=== PATIENT | female | born 1930 | race Caucasian/White ===

== ENCOUNTER 2017-03-21 22:18 | Inpatient (IN) | payer MEDICARE, OTHER ==
[~2017-03-21] VITALS: Ht 160 cm; Wt 48.2 kg
[~2017-03-21 22:18] MED LIST: ALBU18HF INH; DILT120C2 PO; DILT60TA30 PO; FURO-93 PO; HYDR-3240 PO; HYDR-3245 PO; LOSA25TA5 PO; NAPR500T3 PO; PANT40TA3 PO; POLY17PO5 PO; POT25TAB PO
[2017-03-21 22:52] LABS: HEMATOCRIT 36.3 % (34.6-47.8); HEMOGLOBIN 11.6 g/dL (11.7-16.4); WHITE BLOOD COUNT 15.5 x10^3/uL (3.4-10)
[2017-03-21 23:18] LABS: BLOOD UREA NITROGEN 27 mg/dL (7-18)
[2017-03-21 23:19] LABS: IS PT STATUS REG ER OR PRE ER? YES
[2017-03-21 23:25] LABS: ASPARTATE AMINO TRANSFERASE 11 U/L (15-37)
[2017-03-21] MEDS ORDERED: OMNIPAQUE 350 MG/ML, 100ML BOTTLE ONE (23:35)
[2017-03-22 00:01] LABS: ABG COLLECTION SITE RIGHT RADIAL; COLLATERAL CIRCULATION TESTING NORMAL
[2017-03-22] MEDS ORDERED: MIDAZOLAM HCL 25 MG in SODIUM CHLORIDE 0.9% 245 ML IV PRN ×4 (01:00→06:17)
[2017-03-22] MEDS ORDERED: LIDOCAINE 1%, 20ML ONE ×2 (01:14→03:14)
[2017-03-22] MEDS ORDERED: FENTANYL PF 100 MCG/2ML ONE (01:18)
[2017-03-22] MEDS ORDERED: FENTANYL PF 250 MCG/5ML IVPush ONE (05:30)
[2017-03-22] MEDS ORDERED: ENOXAPARIN 40 MG/0.4 ML SQ SCH (06:30)
[2017-03-22] MEDS ORDERED: PHARMACY MAY ADJ FOR RENAL FX MC SCH (06:30)
[2017-03-22] MEDS ORDERED: FENTANYL PF 100 MCG/2ML IVPush PRN (06:30)
[2017-03-22] MEDS ORDERED: SENNA/DOCUSATE TABLET NG PRN (06:30)
[2017-03-22] MEDS ORDERED: LIDOCAINE-MPF 1%, 2ML ENDO PRN (06:30)
[2017-03-22] MEDS ORDERED: BISACODYL 10 MG SUPP PR PRN (06:30)
[2017-03-22] MEDS ORDERED: SENNOSIDES 8.8 MG/5 ML ORAL SOL NG PRN (06:30)
[2017-03-22] MEDS ORDERED: LACTULOSE 20 GM/30 ML UDC NG PRN (06:30)
[2017-03-22] MEDS ORDERED: SODIUM CHLORIDE 0.9%, 500ML IVBOLUS ONE ×2 (06:30→11:30)
[2017-03-22 06:32] LABS: ABG COLLECTION SITE RIGHT RADIAL; COLLATERAL CIRCULATION TESTING NORMAL
[2017-03-22] MEDS ORDERED: SODIUM CHLORIDE 0.9% 1,000 ML IV ONE (06:42)
[2017-03-22] MEDS ORDERED: ONDANSETRON 2MG/ML, 2ML IVPush PRN ×2 (07:00→08:00)
[2017-03-22] MEDS ORDERED: POLYETHYLENE GLYCOL 17 GM PACKET PO PRN (08:00)
[2017-03-22] MEDS ORDERED: LORazepam 2 MG/ML, 1ML IVPush PRN (08:00)
[2017-03-22] MEDS ORDERED: morphine SULFATE 10 MG/ML, 1ML IVPush PRN (08:00)
[2017-03-22] MEDS ORDERED: ACETAMINOPHEN 325 MG TABLET PO PRN (08:00)
[2017-03-22] MEDS: SODIUM CHLORIDE 0.9% 1,000 ML IV SCH ×2 (08:00→17:39)
[2017-03-22] MEDS ORDERED: ENALAPRILAT 1.25 MG/ML, 2ML IVPush PRN (08:00)
[2017-03-22] MEDS ORDERED: ENOXAPARIN 40 MG/0.4 ML ONE (08:50)
[2017-03-22] MEDS ORDERED: methylPREDNISolone SOD SUCC 125 MG/2 ML ONE (08:50)
[2017-03-22] MEDS ORDERED: FAMOTIDINE 20 MG/2 ML ONE (08:50)
[2017-03-22] MEDS: methylPREDNISolone SOD SUCC 125 MG/2 ML IVPush SCH ×4 (08:52→23:39)
[2017-03-22] MEDS: FAMOTIDINE 20 MG/2 ML IV SCH ×2 (08:52→20:21)
[2017-03-22] MEDS: SENNA/DOCUSATE TABLET PO SCH (09:00)
[2017-03-22 09:17] LABS: IS PT STATUS REG ER OR PRE ER? NO
[2017-03-22 09:50] VITALS: BP 129/65
[2017-03-22] MEDS: ALBUTEROL/IPRATROPIUM 2.5MG/0.5MG, 3 ML INLINE SCH ×4 (10:00→21:22)
[2017-03-22] MEDS: MIDAZOLAM HCL 50 MG in SODIUM CHLORIDE 0.9% 240 ML IV PRN ×2 (11:19→20:19)
[2017-03-22] MEDS: PIPERACILLIN/TAZO/PMX 3.375GM 50 ML IV SCH ×3 (11:20→23:05)
[2017-03-22 15:00] LABS: IS PT STATUS REG ER OR PRE ER? YES
[2017-03-22] MEDS ORDERED: ROCURONIUM 10MG/ML,5ML ONE (23:00)
[2017-03-22] MEDS ORDERED: ETOMIDATE 20 MG/10 ML ONE (23:00)
[2017-03-22] MEDS ORDERED: MIDAZOLAM 1 MG/ML, 5ML ONE (23:00)
[2017-03-23] MEDS: ALBUTEROL/IPRATROPIUM 2.5MG/0.5MG, 3 ML INLINE SCH ×6 (02:30→22:46)
[2017-03-23 04:00] VITALS: BP 132/65
[2017-03-23] MEDS: SODIUM CHLORIDE 0.9% 1,000 ML IV SCH ×3 (04:06→14:48)
[2017-03-23 04:35] LABS: ABG COLLECTION SITE RIGHT RADIAL; COLLATERAL CIRCULATION TESTING NORMAL
[2017-03-23 04:35] LABS: HEMATOCRIT 28.8 % (34.6-47.8); HEMOGLOBIN 9.4 g/dL (11.7-16.4); WHITE BLOOD COUNT 5.8 x10^3/uL (3.4-10)
[2017-03-23 04:42] LABS: BLOOD UREA NITROGEN 25 mg/dL (7-18)
[2017-03-23 04:45] LABS: ASPARTATE AMINO TRANSFERASE 10 U/L (15-37)
[2017-03-23] MEDS: PIPERACILLIN/TAZO/PMX 3.375GM 50 ML IV SCH ×4 (05:34→23:06)
[2017-03-23] MEDS: methylPREDNISolone SOD SUCC 125 MG/2 ML IVPush SCH ×3 (06:06→18:12)
[2017-03-23] MEDS: MIDAZOLAM HCL 50 MG in SODIUM CHLORIDE 0.9% 240 ML IV PRN (07:34)
[2017-03-23] MEDS: SENNA/DOCUSATE TABLET PO SCH (09:00)
[2017-03-23] MEDS: FAMOTIDINE 20 MG/2 ML IV SCH ×2 (09:25→20:31)
[2017-03-23] MEDS: ENOXAPARIN 30 MG/0.3 ML SQ SCH (09:26)
[2017-03-23] MEDS: PROPOFOL 100 ML IV PRN ×2 (09:34→19:41)
[2017-03-23] MEDS ORDERED: AMIODARONE 900 MG in DEXTROSE 5% 482 ML IV PRN (14:34)
[2017-03-23] MEDS ORDERED: AMIODARONE 150 MG in DEXTROSE 5% 100 ML IVPB ONE (14:34)
[2017-03-23] MEDS ORDERED: FILTER 0.22 MICRON IV PRN (15:00)
[2017-03-23] MEDS ORDERED: BISACODYL 10 MG SUPP PR PRN (21:00)
[2017-03-23] MEDS ORDERED: POLYETHYLENE GLYCOL 17 GM PACKET PO PRN (21:00)
[2017-03-23] MEDS ORDERED: ENALAPRILAT 1.25 MG/ML, 2ML IVPush PRN (21:00)
[2017-03-23] MEDS ORDERED: FENTANYL PF 100 MCG/2ML IVPush PRN (21:00)
[2017-03-23] MEDS ORDERED: LIDOCAINE-MPF 1%, 2ML ENDO PRN (21:00)
[2017-03-23] MEDS ORDERED: SENNOSIDES 8.8 MG/5 ML ORAL SOL NG PRN (21:00)
[2017-03-23] MEDS ORDERED: SENNA/DOCUSATE TABLET NG PRN (21:00)
[2017-03-23] MEDS ORDERED: ONDANSETRON 2MG/ML, 2ML IVPush PRN (21:00)
[2017-03-23] MEDS ORDERED: LORazepam 2 MG/ML, 1ML IVPush PRN (21:00)
[2017-03-23] MEDS ORDERED: ACETAMINOPHEN 325 MG TABLET PO PRN (21:00)
[2017-03-23] MEDS ORDERED: PHARMACY MAY ADJ FOR RENAL FX MC SCH (21:00)
[2017-03-24] MEDS ORDERED: SODIUM CHLORIDE 0.9%, 500ML IVBOLUS ONE
[2017-03-24] MEDS: methylPREDNISolone SOD SUCC 125 MG/2 ML IVPush SCH ×4 (00:08→17:31)
[2017-03-24] MEDS: ALBUTEROL/IPRATROPIUM 2.5MG/0.5MG, 3 ML INLINE SCH ×6 (02:40→22:10)
[2017-03-24 03:34] LABS: ABG COLLECTION SITE LEFT BRACHIAL
[2017-03-24 03:41] LABS: HEMATOCRIT 27.1 % (34.6-47.8); WHITE BLOOD COUNT 10.5 x10^3/uL (3.4-10)
[2017-03-24 03:46] LABS: BLOOD UREA NITROGEN 27 mg/dL (7-18)
[2017-03-24 04:00] VITALS: BP 133/68
[2017-03-24] MEDS: PIPERACILLIN/TAZO/PMX 3.375GM 50 ML IV SCH ×4 (05:54→22:34)
[2017-03-24] MEDS: PROPOFOL 100 ML IV PRN ×2 (06:05→15:23)
[2017-03-24] MEDS ORDERED: POTASSIUM CHLORIDE 10% 40 MEQ/30 ML UDC PO ONE (08:00)
[2017-03-24] MEDS ORDERED: FENTANYL PF 2,500 MCG in SODIUM CHLORIDE 0.9% 200 ML IV PRN (08:30)
[2017-03-24] MEDS: FAMOTIDINE 20 MG/2 ML IV SCH ×2 (09:01→20:01)
[2017-03-24] MEDS: SENNA/DOCUSATE TABLET PO SCH (09:01)
[2017-03-24] MEDS: LACTULOSE 20 GM/30 ML UDC NG PRN (09:01)
[2017-03-24] MEDS: ENOXAPARIN 30 MG/0.3 ML SQ SCH (09:01)
[2017-03-24] MEDS: SODIUM CHLORIDE 0.9% 1,000 ML IV SCH ×2 (09:01→17:32)
[2017-03-24] MEDS: AMIODARONE 200 MG TABLET PO SCH ×2 (12:25→20:01)
[2017-03-25] MEDS: methylPREDNISolone SOD SUCC 125 MG/2 ML IVPush SCH ×2 (00:20→05:31)
[2017-03-25] MEDS: ALBUTEROL/IPRATROPIUM 2.5MG/0.5MG, 3 ML INLINE SCH ×3 (02:25→10:40)
[2017-03-25 04:13] LABS: ABG COLLECTION SITE RIGHT RADIAL; COLLATERAL CIRCULATION TESTING NORMAL
[2017-03-25 04:26] LABS: BLOOD UREA NITROGEN 35 mg/dL (7-18)
[2017-03-25 04:35] LABS: HEMATOCRIT 25.8 % (34.6-47.8); HEMOGLOBIN 8.4 g/dL (11.7-16.4); WHITE BLOOD COUNT 8.9 x10^3/uL (3.4-10)
[2017-03-25] MEDS: PIPERACILLIN/TAZO/PMX 3.375GM 50 ML IV SCH ×2 (04:36→11:00)
[2017-03-25] MEDS: SODIUM CHLORIDE 0.9% 1,000 ML IV SCH (04:36)
[2017-03-25 04:41] VITALS: BP 100/64
[2017-03-25] MEDS ORDERED: SODIUM PHOSPHATE 20 MMOL in SODIUM CHLORIDE 0.9% 500 ML IV ONE (07:30)
[2017-03-25] MEDS: PROPOFOL 100 ML IV PRN (07:54)
[2017-03-25] MEDS: FAMOTIDINE 20 MG/2 ML IV SCH (08:06)
[2017-03-25] MEDS ORDERED: SENNOSIDES 8.8 MG/5 ML ORAL SOL NG SCH (09:00)
[2017-03-25] MEDS: AMIODARONE 200 MG TABLET PO SCH (09:03)
[2017-03-25] MEDS: LACTULOSE 20 GM/30 ML UDC NG PRN (09:03)
[2017-03-25] MEDS: ENOXAPARIN 30 MG/0.3 ML SQ SCH (09:04)
[2017-03-25] MEDS: INSULIN ASPART 100 UNITS/ML, PEN SQ-INSULIN SCH ×2 (09:04→11:01)
[2017-03-25] MEDS ORDERED: LORazepam 2 MG/ML, 1ML ONE (14:38)
[2017-03-25] MEDS ORDERED: FENTANYL PF 2,500 MCG in SODIUM CHLORIDE 0.9% 200 ML IV PRN (15:00)
[2017-03-25] MEDS: LORazepam 2 MG/ML, 1ML IV PRN ×3 (15:17→15:52)
[2017-03-25] MEDS ORDERED: LORazepam 2 MG/ML, 1ML IV ONE (15:30)
[2017-03-25] MEDS ORDERED: morphine SULFATE 10 MG/ML, 1ML IV ONE (15:30)
[2017-03-25] MEDS ORDERED: ATROPINE OPHTH SOLN 1%, 2ML PO PRN (15:30)
== END 2017-03-25 16:05 | disposition expired | DRG 871 ==
LOC: ED 22:23 → EDIP 03-22 06:42 → CCU 03-22 09:36
PROVIDERS: ADMIT Internal Medicine; ATTEND Internal Medicine
PROC: 5A1945Z Respiratory Ventilation, 24-96 Consecutive Hours (ICD-10-PCS; principal; 2017-03-22)
PROC: 0BH17EZ Insertion of Endotracheal Airway into Trachea, Via Natural or Artificial Opening (ICD-10-PCS; 2017-03-22)
PROC: 0W9900Z Drainage of Right Pleural Cavity with Drainage Device, Open Approach (ICD-10-PCS; 2017-03-22)
PROC: 0T9B70Z Drainage of Bladder with Drainage Device, Via Natural or Artificial Opening (ICD-10-PCS; 2017-03-22)
DX: A41.9 Sepsis, unspecified organism (principal); E43 Unspecified severe protein-calorie malnutrition; J96.20 Acute and chronic respiratory failure, unspecified whether with hypoxia or hypercapnia; J69.0 Pneumonitis due to inhalation of food and vomit; J93.0 Spontaneous tension pneumothorax; N17.0 Acute kidney failure with tubular necrosis; I11.0 Hypertensive heart disease with heart failure; J18.9 Pneumonia, unspecified organism; Z99.11 Dependence on respirator [ventilator] status; I50.9 Heart failure, unspecified; M41.9 Scoliosis, unspecified; R64 Cachexia; J44.0 Chronic obstructive pulmonary disease with (acute) lower respiratory infection; J44.1 Chronic obstructive pulmonary disease with (acute) exacerbation; J95.811 Postprocedural pneumothorax; Z68.1 Body mass index [BMI] 19.9 or less, adult; M48.54XA Collapsed vertebra, not elsewhere classified, thoracic region, initial encounter for fracture; I48.91 Unspecified atrial fibrillation; D64.9 Anemia, unspecified; G89.4 Chronic pain syndrome; H35.30 Unspecified macular degeneration; Z66 Do not resuscitate; Z87.891 Personal history of nicotine dependence; Z99.81 Dependence on supplemental oxygen; Z90.49 Acquired absence of other specified parts of digestive tract; J98.2 Interstitial emphysema; Z51.5 Encounter for palliative care
CPT/HCPCS: 31500; 36415; 36600; 71010; 71275; 80048; 80053; 81001; 82140; 82803; 82962; 83735; 83880; 84100; 84439; 84443; 84478; 84484; 85025; 87040; 87070; 87077; 87081; 87086; 87186; 87205; 93005; 94002; 94003; 94640; 96365; 96366; 96375; 99152; 99153; 99292; J1650; J1815; J2250; J2543; J2704; J3010; J7620; Q9967; J0282; J2060; J2930; J7030; J7040; J7050; J7060; S0028